=== PATIENT | female | born 1980 | race Caucasian/White ===

== ENCOUNTER → 2017-07-07 | Emergency (ER) | payer OTHER ==
[~2017-07-07] VITALS: Ht 172.7 cm; Wt 67.1 kg
[~2017-07-07] MED LIST: BENADRYL50 MG; CLONAZEPAM2 MG; RESTORIL30 MG; VISTARIL50 MG; ZOLOFT25 MG
== END | disposition designated cancer center or children's hospital (05) ==
LOC: ER 13:22
DX: J45.998 Other asthma (principal); B20 Human immunodeficiency virus [HIV] disease